=== PATIENT | male | born 1960 | race Caucasian/White ===

== ENCOUNTER → 2018-02-11 | Outpatient (CLI) | payer OTHER ==
[~2018-02-11] MED LIST: Levaquin PO; Proventil,Ventolin H IH
== END | disposition home or self-care (01) ==
LOC: RAD 12:45
DX: I25.10 Atherosclerotic heart disease of native coronary artery without angina pectoris (principal); M89.9 Disorder of bone, unspecified
CPT/HCPCS: 71260